=== PATIENT | female | born 1980 | race Caucasian/White ===

== ENCOUNTER 2019-07-27 12:16 | Inpatient (IN) | payer OTHER ==
[~2019-07-27] VITALS: Ht 170.2 cm; Wt 91.6 kg
[2019-07-27] MEDS ORDERED: SODIUM CHLORIDE 0.9% 1000ML 1,000 ML IV STA (12:31)
[2019-07-27 12:53] LABS: BASOPHILS % 0.1 % (0.0-1.0); EOSINOPHILS # (AUTO) 0.1 (0.0-0.4); EOSINOPHILS % 0.6 % (0.0-6.0); HEMOGLOBIN 13.5 g/dL (12.0-16.0); LYMPHOCYTES # (AUTO) 2.2 (1.0-3.2); LYMPHOCYTES % 10.3 % (18.0-39.1); MEAN CORPUSCULAR HEMOGLOBIN 30.5 pg (28-32); MEAN CORPUSCULAR HGB CONC 33.8 g/dL (31-35); MEAN CORPUSCULAR VOLUME 90.5 fL (81-99); MONOCYTES % 4.8 % (4.4-11.3); NEUTROPHILS % 83.5 % (38.7-80.0); PLATELET COUNT 250 x10e3/uL (140-360); RED BLOOD COUNT 4.42 x10e6/uL (3.6-5.1); RED CELL DISTRIBUTION WIDTH 13.6 % (11.7-14.4)
[2019-07-27] MEDS ORDERED: ONDANSETRON HCL INJ 2MG/ML 2ML 2 MG/ML VIAL IV ONE (13:00)
[2019-07-27] MEDS ORDERED: MORPHINE SULFATE INJ 4 MG/ML INJ 1ML IV ONE (13:00)
[2019-07-27] MEDS ORDERED: PIPER-TAZ 3.375 GM 50 ML IV ONE (13:00)
[2019-07-27 13:15] LABS: ALANINE AMINOTRANSFERASE 9 IU/L (0-55); ALBUMIN 3.4 g/dL (3.5-5.0); ALBUMIN/GLOBULIN RATIO 0.9 (0.8-2.0); ALKALINE PHOSPHATASE 65 IU/L (40-150); ANION GAP 14.4 mmol/L (8-16); BLOOD UREA NITROGEN 9 mg/dL (7-26); BUN/CREATININE RATIO 11 (6-25); CALCIUM 9.8 mg/dL (8.4-10.2); CARBON DIOXIDE 25 mmol/L (22-29); CHLORIDE 103 mmol/L (98-107); CREATININE, SERUM 0.81 mg/dL (0.57-1.11); EST GLOMERULAR FILTRATION RATE > 60 ML/MIN (60-); GLUCOSE 93 mg/dL (74-118); POTASSIUM 3.4 mmol/L (3.5-5.1); SODIUM 139 mmol/L (136-145)
[2019-07-27 13:20] LABS: BILIRUBIN,URINE SMALL (NEGATIVE); CLARITY,URINE SL CLOUDY (CLEAR); COLOR,URINE YELLOW (YELLOW); KETONES,URINE TRACE (NEGATIVE); LEUKOCYTE ESTERASE ,URINE NEGATIVE (NEGATIVE); NITRITE,URINE NEGATIVE (NEGATIVE); PROTEIN,URINE DIPSTICK 2+ (NEGATIVE); URINE UROBILINOGEN 1 mg/dL (0.2 - 1)
--- NOTE | 2019-07-27 13:35 | Diagnostic Imaging Report ---
EXAMINATION: CHEST SINGLE (PORTABLE) INDICATION: Shortness of breath, cough COMPARISON: None FINDINGS: LINES/TUBES:None LUNGS:The lungs are well-inflated. No focal consolidation or pulmonary edema. PLEURA:No pleural effusion or pneumothorax. MEDIASTINUM:The cardiomediastinal silhouette appears normal in size and shape. BONES/SOFT TISSUES:No acute osseous injury. ABDOMEN:No free air under the diaphragm. IMPRESSION: No focal pneumonia or pulmonary edema. Signed by: Pat Mckeon MD on 07/27/2019 1:32 PM
[2019-07-27 13:58] LABS: BACTERIA,URINE MODERATE /HPF; EPITHELIAL CELLS,URINE MANY /LPF; WBC,URINE (MAN) 0-5 /HPF (0-5)
[2019-07-27] MEDS ORDERED: VANCOMYCIN 1GM/NS 250 ML 250 ML IV ONE (14:00)
[2019-07-27] MEDS ORDERED: ONDANSETRON HCL INJ 2MG/ML 2ML 2 MG/ML VIAL IV PRN (15:00)
[2019-07-27] MEDS: SODIUM CHLORIDE 0.9% 1000ML 1,000 ML IV SCH ×2 (16:34→21:50)
[2019-07-27] MEDS: HYDROCODONE/APAP 7.5MG-325MG 1 EA TAB PO PRN (19:00)
[2019-07-27] MEDS: PIPER-TAZ 3.375 GM 50 ML IV SCH (19:58)
[2019-07-27 20:00] VITALS: BP 118/57
[2019-07-27 20:36] VITALS: BP 118/57
--- NOTE | 2019-07-27 21:00 | NUR ---
RECEIVED PATIENT FROM ER AOX4 NO SIGNS OF DISTRESS NOTED. REDNESS NOTED IN LEFT UPPER THIGH AND PATIENT VOICES NO PAIN AT THIS TIME. FLUIDS ARE RUNNING AT ORDERED RATE, BOTH SIDE RAILS ARE UP, CALL LIGHT WITHIN REACH, WILL CONTINUE TO MONITOR.
[2019-07-27 22:08] VITALS: BP 118/57
[2019-07-27 22:15] VITALS: BP 118/57
[2019-07-28] VITALS (8 sets, daily range): BP systolic 93–106; BP diastolic 49–64
[2019-07-28] MEDS: VANCOMYCIN 1GM/NS 250 ML 250 ML IV SCH ×2 (01:08→14:17)
[2019-07-28] MEDS: HYDROCODONE/APAP 7.5MG-325MG 1 EA TAB PO PRN ×5 (01:20→23:59)
[2019-07-28] MEDS: PIPER-TAZ 3.375 GM 50 ML IV SCH ×4 (02:46→20:15)
[2019-07-28 06:05] LABS: BASOPHILS # (AUTO) 0.1 (0.0-0.1); BASOPHILS % 0.4 % (0.0-1.0); EOSINOPHILS # (AUTO) 0.2 (0.0-0.4); EOSINOPHILS % 1.9 % (0.0-6.0); HEMATOCRIT 37.9 % (34.2-44.1); HEMOGLOBIN 12.3 g/dL (12.0-16.0); LYMPHOCYTES # (AUTO) 2.6 (1.0-3.2); LYMPHOCYTES % 21.9 % (18.0-39.1); MEAN CORPUSCULAR HEMOGLOBIN 30.4 pg (28-32); MEAN CORPUSCULAR HGB CONC 32.5 g/dL (31-35); MEAN CORPUSCULAR VOLUME 93.8 fL (81-99); MONOCYTES # (AUTO) 0.6 (0.2-0.8); MONOCYTES % 4.9 % (4.4-11.3); NEUTROPHILS # (AUTO) 8.3 (2.1-6.9); NEUTROPHILS % 70.5 % (38.7-80.0); PLATELET COUNT 198 x10e3/uL (140-360); RED BLOOD COUNT 4.04 x10e6/uL (3.6-5.1); RED CELL DISTRIBUTION WIDTH 13.8 % (11.7-14.4)
[2019-07-28 06:41] LABS: ALANINE AMINOTRANSFERASE 9 IU/L (0-55); ALBUMIN 2.7 g/dL (3.5-5.0); ALBUMIN/GLOBULIN RATIO 0.9 (0.8-2.0); ALKALINE PHOSPHATASE 55 IU/L (40-150); ANION GAP 12.1 mmol/L (8-16); BLOOD UREA NITROGEN 10 mg/dL (7-26); BUN/CREATININE RATIO 13 (6-25); CALCIUM 8.5 mg/dL (8.4-10.2); CARBON DIOXIDE 22 mmol/L (22-29); CHLORIDE 108 mmol/L (98-107); CREATININE, SERUM 0.77 mg/dL (0.57-1.11); EST GLOMERULAR FILTRATION RATE > 60 ML/MIN (60-); GLUCOSE 85 mg/dL (74-118); POTASSIUM 4.1 mmol/L (3.5-5.1); SODIUM 138 mmol/L (136-145)
[2019-07-28] MEDS ORDERED: MELATONIN 5 MG TABLET PO PRN (08:15)
[2019-07-28] MEDS ORDERED: ACETAMINOPHEN 325 MG TAB PO PRN (08:15)
[2019-07-28] MEDS ORDERED: HYDRALAZINE HCL 20 MG/ML VIAL IV PRN (08:15)
[2019-07-28] MEDS ORDERED: NICOTINE 14 MG/EA PATCH TOP PRN (08:30)
[2019-07-28] MEDS ORDERED: ALBUTEROL/IPRATROPIUM 3 ML NEB NEB PRN (08:30)
[2019-07-28] MEDS: SODIUM CHLORIDE 0.9% 1000ML 1,000 ML IV SCH (10:48)
[2019-07-28] MEDS: FAMOTIDINE 20 MG TAB PO SCH (18:04)
--- NOTE | 2019-07-28 21:07 | NUR ---
PATIENT'S IV FROM LEFT AC HAD DISLODGED AND IS NOW REPLACED IN LEFT HAND WITH 22 GAUGE, IT IS PATENT AND FLOWING WITH MEDICATION AT ORDERED RATE.
[2019-07-29] VITALS (7 sets, daily range): BP systolic 97–114; BP diastolic 49–64
[2019-07-29] MEDS: SODIUM CHLORIDE 0.9% 1000ML 1,000 ML IV SCH ×3 (00:32→19:21)
[2019-07-29] MEDS: VANCOMYCIN 1GM/NS 250 ML 250 ML IV SCH ×2 (01:24→14:30)
[2019-07-29] MEDS: PIPER-TAZ 3.375 GM 50 ML IV SCH ×4 (03:00→20:10)
--- NOTE | 2019-07-29 03:30 | NUR ---
ATTEMPTED TO GET 03:00 LAB DRAW TO PATIENT BUT WAS UNSUCCESSFUL AFTER 3 ATTEMPTS. WILL HAVE PHLEBOTOMY DO IT AT 05:00.
[2019-07-29 07:51] LABS: BASOPHILS # (AUTO) 0.1 (0.0-0.1); BASOPHILS % 0.7 % (0.0-1.0); EOSINOPHILS # (AUTO) 0.2 (0.0-0.4); HEMATOCRIT 36.3 % (34.2-44.1); LYMPHOCYTES # (AUTO) 2.1 (1.0-3.2); LYMPHOCYTES % 27.4 % (18.0-39.1); MEAN CORPUSCULAR HEMOGLOBIN 30.8 pg (28-32); MEAN CORPUSCULAR HGB CONC 33.1 g/dL (31-35); MEAN CORPUSCULAR VOLUME 93.1 fL (81-99); MONOCYTES # (AUTO) 0.5 (0.2-0.8); MONOCYTES % 6.4 % (4.4-11.3); NEUTROPHILS # (AUTO) 4.7 (2.1-6.9); NEUTROPHILS % 62.1 % (38.7-80.0); PLATELET COUNT 240 x10e3/uL (140-360); RED CELL DISTRIBUTION WIDTH 13.5 % (11.7-14.4)
[2019-07-29] MEDS: FAMOTIDINE 20 MG TAB PO SCH ×2 (07:55→16:55)
[2019-07-29 08:05] LABS: BLOOD UREA NITROGEN 7 mg/dL (7-26); BUN/CREATININE RATIO 9 (6-25); CALCIUM 8.7 mg/dL (8.4-10.2); CARBON DIOXIDE 26 mmol/L (22-29); CHLORIDE 106 mmol/L (98-107); CREATININE, SERUM 0.81 mg/dL (0.57-1.11); EST GLOMERULAR FILTRATION RATE > 60 ML/MIN (60-); GLUCOSE 88 mg/dL (74-118); SODIUM 139 mmol/L (136-145)
[2019-07-29 08:29] LABS: FREE T4 (FREE THYROXINE) 1.04 ng/dL (0.8-1.8); THYROID STIMULATING HORMONE 3.367 uIU/mL (0.350-4.940)
[2019-07-29] MEDS: HYDROCODONE/APAP 7.5MG-325MG 1 EA TAB PO PRN ×3 (10:38→22:22)
--- NOTE | 2019-07-29 19:10 | NUR ---
Patient visited in room during nursing rounds. Patient alert and oriented x3. No distress noted. Cellulitis site (with marked induration) on left upper thigh noted and pt experiencing intermittent burning pain. On IVF (NS at 100ml/hr) and IV antibiotics as scheduled. Pt ambulatory in room prn. Call ruiz within reach. Will monitor closely.
[2019-07-30] VITALS (7 sets, daily range): BP systolic 106–117; BP diastolic 54–75
[2019-07-30] MEDS: PIPER-TAZ 3.375 GM 50 ML IV SCH ×4 (02:10→19:45)
[2019-07-30] MEDS: SODIUM CHLORIDE 0.9% 1000ML 1,000 ML IV SCH (02:10)
[2019-07-30 03:36] LABS: BASOPHILS % 0.5 % (0.0-1.0); EOSINOPHILS # (AUTO) 0.2 (0.0-0.4); EOSINOPHILS % 2.8 % (0.0-6.0); HEMATOCRIT 35.5 % (34.2-44.1); HEMOGLOBIN 11.8 g/dL (12.0-16.0); LYMPHOCYTES # (AUTO) 2.2 (1.0-3.2); LYMPHOCYTES % 29.2 % (18.0-39.1); MEAN CORPUSCULAR HEMOGLOBIN 30.1 pg (28-32); MEAN CORPUSCULAR HGB CONC 33.2 g/dL (31-35); MEAN CORPUSCULAR VOLUME 90.6 fL (81-99); MONOCYTES # (AUTO) 0.5 (0.2-0.8); NEUTROPHILS # (AUTO) 4.6 (2.1-6.9); NEUTROPHILS % 60.2 % (38.7-80.0); PLATELET COUNT 251 x10e3/uL (140-360); RED BLOOD COUNT 3.92 x10e6/uL (3.6-5.1); RED CELL DISTRIBUTION WIDTH 13.2 % (11.7-14.4)
[2019-07-30 03:47] LABS: ANION GAP 12.9 mmol/L (8-16); BLOOD UREA NITROGEN 9 mg/dL (7-26); BUN/CREATININE RATIO 12 (6-25); CALCIUM 8.9 mg/dL (8.4-10.2); CARBON DIOXIDE 25 mmol/L (22-29); CHLORIDE 106 mmol/L (98-107); CREATININE, SERUM 0.78 mg/dL (0.57-1.11); EST GLOMERULAR FILTRATION RATE > 60 ML/MIN (60-); GLUCOSE 114 mg/dL (74-118); POTASSIUM 3.9 mmol/L (3.5-5.1); SODIUM 140 mmol/L (136-145)
[2019-07-30] MEDS: VANCOMYCIN 1GM/NS 250 ML 250 ML IV SCH ×2 (04:40→15:30)
[2019-07-30] MEDS: HYDROCODONE/APAP 7.5MG-325MG 1 EA TAB PO PRN ×4 (04:45→21:30)
[2019-07-30] MEDS: FAMOTIDINE 20 MG TAB PO SCH ×2 (06:35→16:21)
--- NOTE | 2019-07-30 12:08 | Diagnostic Imaging Report ---
ULTRASOUND: LEFT THIGH TECHNIQUE: Ultrasound evaluation of the left thigh. Color doppler was utilized to supplement the evaluation. HISTORY: Cellulitis, rule out abscess COMPARISON: None DISCUSSION: Ultrasound evaluation in the region of the left thigh cellulitis. IMPRESSION: 1. Nonspecific soft tissue edema. 2. No drainable fluid collection/abscess. Signed by: Dr. Russell Urbina D.O., M.M.M. on 07/30/2019 12:05 PM
--- NOTE | 2019-07-30 18:48 | Consultation ---
DATE OF CONSULTATION: 07/30/2019 HISTORY OF PRESENT ILLNESS: The patient is a 38-year-old female, who was admitted to the hospital with complaints of pain and swelling in her left thigh, apparently she had been on outpatient therapy without improvement. Since admission with IV antibiotic she has improved. She has been afebrile. She has ultrasound of the left thigh done today, which revealed only soft tissue swelling with no abscess. PAST MEDICAL HISTORY: Otherwise, unremarkable. She denies chronic medical problems. ALLERGIES: SHE HAS NO KNOWN ALLERGIES. PAST SURGICAL HISTORY: Only previous surgery is a tubal ligation. MEDICATIONS: There were no chronic medications. FAMILY HISTORY: Noncontributory. SOCIAL HISTORY: The patient does not smoke cigarettes or drink alcohol. REVIEW OF SYSTEMS: As stated above, otherwise was negative. PHYSICAL EXAMINATION: GENERAL: The patient is awake and alert, in no distress. VITAL SIGNS: Normal. HEENT: There was no scleral icterus. NECK: No masses. LUNGS: Equal breath sounds are clear bilaterally. CARDIAC: Regular rate and rhythm. ABDOMEN: Soft with no tenderness. No mass. EXTREMITIES: Left thigh, there is erythema. There is some mild induration in the groin area. There is no drainage. No fluctuance. No necrotic tissue. NEUROLOGIC: Grossly intact. ASSESSMENT: A 38-year-old female with cellulitis of the left side. No evidence of abscess on exam or ultrasound. RECOMMEND: Continue the patient on IV antibiotics. I will continue to follow the patient with you. Thank you for asking me to see Ms. Metcalf. MD MELINA Pollard/JEANIE /[id number]
--- NOTE | 2019-07-30 19:10 | NUR ---
Patient visited in room during nursing rounds. Patient alert and oriented x3. No distress noted. Cellulitis site (with marked induration) on left upper thigh noted and pt experiencing intermittent burning pain. Redness on left thigh has decreased in size based on marked induration. On scheduled IV antibiotics. Pt ambulatory in room prn. Call ruiz within reach. Will monitor closely.
[2019-07-31] VITALS (8 sets, daily range): BP systolic 99–131; BP diastolic 53–66
[2019-07-31] MEDS: PIPER-TAZ 3.375 GM 50 ML IV SCH ×4 (02:00→21:23)
[2019-07-31 03:33] LABS: BASOPHILS % 0.5 % (0.0-1.0); EOSINOPHILS # (AUTO) 0.2 (0.0-0.4); EOSINOPHILS % 2.8 % (0.0-6.0); HEMATOCRIT 35.4 % (34.2-44.1); HEMOGLOBIN 11.9 g/dL (12.0-16.0); LYMPHOCYTES # (AUTO) 2.1 (1.0-3.2); LYMPHOCYTES % 24.6 % (18.0-39.1); MEAN CORPUSCULAR HEMOGLOBIN 30.4 pg (28-32); MEAN CORPUSCULAR HGB CONC 33.6 g/dL (31-35); MEAN CORPUSCULAR VOLUME 90.3 fL (81-99); MONOCYTES # (AUTO) 0.6 (0.2-0.8); MONOCYTES % 6.6 % (4.4-11.3); NEUTROPHILS # (AUTO) 5.5 (2.1-6.9); NEUTROPHILS % 64.8 % (38.7-80.0); PLATELET COUNT 255 x10e3/uL (140-360); RED BLOOD COUNT 3.92 x10e6/uL (3.6-5.1); RED CELL DISTRIBUTION WIDTH 13.2 % (11.7-14.4)
[2019-07-31] MEDS: VANCOMYCIN 1GM/NS 250 ML 250 ML IV SCH ×2 (03:41→16:29)
[2019-07-31 03:52] LABS: ANION GAP 13.9 mmol/L (8-16); BLOOD UREA NITROGEN 5 mg/dL (7-26); BUN/CREATININE RATIO 7 (6-25); CALCIUM 9.2 mg/dL (8.4-10.2); CARBON DIOXIDE 26 mmol/L (22-29); CHLORIDE 103 mmol/L (98-107); CREATININE, SERUM 0.76 mg/dL (0.57-1.11); EST GLOMERULAR FILTRATION RATE > 60 ML/MIN (60-); GLUCOSE 95 mg/dL (74-118); POTASSIUM 3.9 mmol/L (3.5-5.1); SODIUM 139 mmol/L (136-145)
[2019-07-31] MEDS: HYDROCODONE/APAP 7.5MG-325MG 1 EA TAB PO PRN ×3 (06:38→17:54)
[2019-07-31] MEDS: FAMOTIDINE 20 MG TAB PO SCH ×2 (06:38→16:29)
--- NOTE | 2019-07-31 07:16 | NUR ---
Received patient lying in bed with eyes open. Respiration even and unlabored without SOB. Call light in reach.
--- NOTE | 2019-07-31 19:24 | NUR ---
Report given to shift production associate. Respiration even and unlabored without SOB. Call light in reach.
--- NOTE | 2019-07-31 19:33 | NUR ---
PT IS RESTING IN BED. RESPIRATION IS EVEN AND UNLABORED, NO DISTRESS NOTED. BED IN THE LOWEST POSITION, LOCKED, AND CALL LIGHT WITHIN REACH. WILL CONTINUE TO MONITOR.
[2019-07-31] MEDS: ACETAMINOPHEN/CODEINE 300MG - 30MG TAB PO PRN (21:23)
[2019-08-01] VITALS (8 sets, daily range): BP systolic 107–134; BP diastolic 56–87
[2019-08-01] MEDS: PIPER-TAZ 3.375 GM 50 ML IV SCH ×4 (02:04→20:20)
[2019-08-01 03:31] LABS: BASOPHILS # (AUTO) 0.1 (0.0-0.1); BASOPHILS % 0.7 % (0.0-1.0); EOSINOPHILS # (AUTO) 0.3 (0.0-0.4); EOSINOPHILS % 2.5 % (0.0-6.0); HEMATOCRIT 37.8 % (34.2-44.1); HEMOGLOBIN 12.8 g/dL (12.0-16.0); LYMPHOCYTES # (AUTO) 2.3 (1.0-3.2); LYMPHOCYTES % 23.2 % (18.0-39.1); MEAN CORPUSCULAR HEMOGLOBIN 30.5 pg (28-32); MEAN CORPUSCULAR HGB CONC 33.9 g/dL (31-35); MEAN CORPUSCULAR VOLUME 90.2 fL (81-99); MONOCYTES # (AUTO) 0.6 (0.2-0.8); MONOCYTES % 6.5 % (4.4-11.3); NEUTROPHILS # (AUTO) 6.5 (2.1-6.9); NEUTROPHILS % 66.4 % (38.7-80.0); PLATELET COUNT 270 x10e3/uL (140-360); RED BLOOD COUNT 4.19 x10e6/uL (3.6-5.1); RED CELL DISTRIBUTION WIDTH 13.2 % (11.7-14.4)
[2019-08-01 03:48] LABS: ANION GAP 13.1 mmol/L (8-16); BLOOD UREA NITROGEN 7 mg/dL (7-26); BUN/CREATININE RATIO 9 (6-25); CALCIUM 9.1 mg/dL (8.4-10.2); CARBON DIOXIDE 25 mmol/L (22-29); CHLORIDE 104 mmol/L (98-107); CREATININE, SERUM 0.78 mg/dL (0.57-1.11); EST GLOMERULAR FILTRATION RATE > 60 ML/MIN (60-); GLUCOSE 98 mg/dL (74-118); POTASSIUM 4.1 mmol/L (3.5-5.1); SODIUM 138 mmol/L (136-145)
[2019-08-01] MEDS: VANCOMYCIN 1GM/NS 250 ML 250 ML IV SCH ×2 (04:09→17:02)
[2019-08-01] MEDS: HYDROCODONE/APAP 7.5MG-325MG 1 EA TAB PO PRN ×2 (06:44→20:58)
[2019-08-01] MEDS: FAMOTIDINE 20 MG TAB PO SCH ×2 (10:18→17:25)
--- NOTE | 2019-08-01 14:55 | NUR ---
Nutrition Screen Note RD Recommendation for Physician: -Continue regular diet per MD. Plan of Care: RD following, monitoring for tolerance and adequacy Nutrition reason for involvement: LOS Primary Diagnose(s): Cellulitis of left thigh PMH: no significant PMH Ht: 67 in Wt: 202 lb BMI: 31.6 kg/m2 IBW: [address] Assessment: (08/01) 38 YOF admitted for cellulitis of the left thigh with no pertinent PMH. Pt reported that she was not too hungry but that she has been eating. Pt denied an unintentional weight loss recently. Pt denied N/V/C/D/chewing or swallowing issues as well as any food allergies. Pt had no other questions or concerns. Chart reviewed. Labs and meds reviewed. Will continue to monitor. Current Diet: regular Malnutrition Evaluation (08/01) The patient does not meet criteria for a specified degree of malnutrition at this time. Will re-evaluate at follow-up as appropriate. Diet Education Needs Assessment: Diet education not indicated. Nutrition Care Level: low Signed: Meagan Parada RD, LD
[2019-08-02] VITALS (10 sets, daily range): BP systolic 90–111; BP diastolic 54–73
[2019-08-02] MEDS: PIPER-TAZ 3.375 GM 50 ML IV SCH ×4 (02:05→20:45)
[2019-08-02] MEDS: VANCOMYCIN 1GM/NS 250 ML 250 ML IV SCH ×2 (03:04→16:01)
[2019-08-02 03:22] LABS: BASOPHILS # (AUTO) 0.1 (0.0-0.1); BASOPHILS % 0.7 % (0.0-1.0); EOSINOPHILS # (AUTO) 0.3 (0.0-0.4); EOSINOPHILS % 2.9 % (0.0-6.0); HEMATOCRIT 39.1 % (34.2-44.1); HEMOGLOBIN 13.2 g/dL (12.0-16.0); LYMPHOCYTES # (AUTO) 2.3 (1.0-3.2); LYMPHOCYTES % 19.3 % (18.0-39.1); MEAN CORPUSCULAR HEMOGLOBIN 30.4 pg (28-32); MEAN CORPUSCULAR HGB CONC 33.8 g/dL (31-35); MEAN CORPUSCULAR VOLUME 90.1 fL (81-99); MONOCYTES # (AUTO) 0.8 (0.2-0.8); MONOCYTES % 6.8 % (4.4-11.3); NEUTROPHILS # (AUTO) 8.3 (2.1-6.9); NEUTROPHILS % 69.7 % (38.7-80.0); PLATELET COUNT 278 x10e3/uL (140-360); RED BLOOD COUNT 4.34 x10e6/uL (3.6-5.1); RED CELL DISTRIBUTION WIDTH 13.2 % (11.7-14.4)
[2019-08-02] MEDS ORDERED: SODIUM CHLORIDE 0.9% 250ML 250 ML ONE (09:12)
[2019-08-02] MEDS: HYDROCODONE/APAP 7.5MG-325MG 1 EA TAB PO PRN ×2 (09:19→19:45)
[2019-08-02] MEDS: FAMOTIDINE 20 MG TAB PO SCH ×2 (09:19→16:29)
--- NOTE | 2019-08-02 20:45 | NUR ---
PATIENT IS AOX4 NO SIGNS OF DISTRESS NOTED. DAUGHTER AT BEDSIDE WITH PATIENT, REDNESS NOTED IN LEFT UPPER THIGH WITH MILD BLISTERING AND PATIENT VOICES NO PAIN AT THIS TIME. BED IS LOCKED AND IN LOWEST POSITION, BOTH SIDE RAILS ARE UP, CALL LIGHT WITHIN REACH, WILL CONTINUE TO MONITOR.
[2019-08-03] VITALS (9 sets, daily range): BP systolic 93–124; BP diastolic 54–69
[2019-08-03] MEDS: PIPER-TAZ 3.375 GM 50 ML IV SCH ×4 (01:50→20:50)
[2019-08-03 03:40] LABS: BASOPHILS # (AUTO) 0.1 (0.0-0.1); BASOPHILS % 0.9 % (0.0-1.0); EOSINOPHILS # (AUTO) 0.3 (0.0-0.4); EOSINOPHILS % 2.9 % (0.0-6.0); HEMATOCRIT 38.9 % (34.2-44.1); LYMPHOCYTES # (AUTO) 2.3 (1.0-3.2); LYMPHOCYTES % 22.1 % (18.0-39.1); MEAN CORPUSCULAR HEMOGLOBIN 29.8 pg (28-32); MEAN CORPUSCULAR HGB CONC 33.4 g/dL (31-35); MEAN CORPUSCULAR VOLUME 89.2 fL (81-99); MONOCYTES # (AUTO) 0.7 (0.2-0.8); NEUTROPHILS % 66.1 % (38.7-80.0); PLATELET COUNT 298 x10e3/uL (140-360); RED BLOOD COUNT 4.36 x10e6/uL (3.6-5.1); RED CELL DISTRIBUTION WIDTH 13.2 % (11.7-14.4)
[2019-08-03 04:00] LABS: ANION GAP 13.9 mmol/L (8-16); BLOOD UREA NITROGEN 11 mg/dL (7-26); BUN/CREATININE RATIO 13 (6-25); CALCIUM 9.6 mg/dL (8.4-10.2); CARBON DIOXIDE 23 mmol/L (22-29); CHLORIDE 105 mmol/L (98-107); CREATININE, SERUM 0.83 mg/dL (0.57-1.11); EST GLOMERULAR FILTRATION RATE > 60 ML/MIN (60-); GLUCOSE 101 mg/dL (74-118); POTASSIUM 3.9 mmol/L (3.5-5.1); SODIUM 138 mmol/L (136-145)
--- NOTE | 2019-08-03 04:25 | NUR ---
VANCOMYCIN TROUGH RESULTS CAME BACK AT 8.9 WILL CONTINUE TO GIVE ORDERED MEDICATION.
[2019-08-03] MEDS: VANCOMYCIN 1GM/NS 250 ML 250 ML IV SCH ×2 (04:30→17:00)
[2019-08-03] MEDS: FAMOTIDINE 20 MG TAB PO SCH ×2 (07:30→17:00)
[2019-08-03] MEDS ORDERED: ACETAMINOPHEN 1000 MG/100 ML 100 ML IV ONE (11:56)
[2019-08-03] MEDS ORDERED: MORPHINE SULFATE INJ 4 MG/ML INJ 1ML IV PRN (12:00)
[2019-08-03] MEDS ORDERED: BACITRACIN 50,000 UNIT VIAL ONE (12:00)
[2019-08-03] MEDS ORDERED: MORPHINE SULFATE INJ 10 MG/ML ONE (12:07)
--- NOTE | 2019-08-03 12:28 | NUR ---
Pt back on unit at this time, post procedure. A&O x4, resp WNL. C/o pain to surgical site 04/10. Dressing to L thigh, CDI. New orders received in computer. Call light within reach, bed in lowest position.
--- NOTE | 2019-08-03 13:10 | Operative Report ---
DATE OF PROCEDURE: 08/03/2019 SURGEON: Yung Lopez MD PREOPERATIVE DIAGNOSIS: Abscess, left medial thigh. POSTOPERATIVE DIAGNOSIS: Abscess, left medial thigh. PROCEDURE: Incision and drainage of abscess, left medial thigh. HAND DRILLER: None. ANESTHESIA: General. INDICATIONS AND FINDINGS: The patient is a 38-year-old female with complaints of pain and swelling in left thigh. The surrounding cellulitis gradually improved, which she continued to have area of induration with some fluctuance in the medial thigh. At Surgery, there was an abscess containing approximately 4 mL of purulent fluid, which was drained. TECHNIQUE: After adequate general anesthesia, the patient is in supine position with the left leg abducted, the left medial thigh was prepped and draped in sterile fashion with Betadine solution. Incision was made over the area of swelling and abscess cavity was entered, purulent fluid was drained, sample taken for culture and sensitivity. All loculations were broken up. The abscess cavity was irrigated with saline. Hemostasis was seen to be adequate. The wound was then packed open with half-inch iodoform gauze and sterile dressing applied. The patient tolerated the procedure well. Estimated blood loss was 5 mL. There were no complications. All counts were correct. The patient was taken to the recovery room in satisfactory condition. Yung Lopez MD DWG/MODL /[id number]
[2019-08-03] MEDS ORDERED: MIDAZOLAM HCL 2 MG/2 ML VIAL ONE (18:03)
[2019-08-03] MEDS ORDERED: FENTANYL CITRATE/PF 100MCG/2 ML INJ ONE (18:03)
[2019-08-03] MEDS ORDERED: PROPOFOL IV EMULSION 10 MG/ML 20 ML VIAL ONE (18:07)
[2019-08-03] MEDS ORDERED: SEVOFLURANE INHAL SOLN 250 ML PEN BTL ONE (18:07)
[2019-08-03] MEDS ORDERED: ONDANSETRON HCL INJ 2MG/ML 2ML 2 MG/ML VIAL ONE (18:07)
[2019-08-03] MEDS ORDERED: LIDOCAINE HCL 2% LOCAL INJ 5 ML SDV VIAL INJ ONE (18:07)
--- NOTE | 2019-08-03 20:50 | NUR ---
PATIENT HAS NEW IV IN RIGHT HAND 20 GAUGE, IT IS PATENT AND FLOWING.
[2019-08-04] VITALS: BP 107/58
[2019-08-04] MEDS: PIPER-TAZ 3.375 GM 50 ML IV SCH ×2 (02:09→07:33)
--- NOTE | 2019-08-04 03:15 | NUR ---
ATTEMPTED TO DRAW 0300 LABS AND WAS UNSUCCESSFUL AFTER TWO TRIES. CALLED LAB TO TRY AGAIN AT 0500.
[2019-08-04] MEDS: VANCOMYCIN 1GM/NS 250 ML 250 ML IV SCH (03:26)
[2019-08-04 04:00] VITALS: BP 114/63
[2019-08-04] MEDS ORDERED: TYLENOL # 31 EA PO (06:27)
[2019-08-04] MEDS ORDERED: CIPRO500 MG PO (06:27)
[2019-08-04] MEDS ORDERED: BACTRIM DS TAB1 EACH PO (06:27)
[2019-08-04 06:41] LABS: BASOPHILS # (AUTO) 0.1 (0.0-0.1); BASOPHILS % 0.5 % (0.0-1.0); EOSINOPHILS # (AUTO) 0.2 (0.0-0.4); EOSINOPHILS % 2.2 % (0.0-6.0); HEMATOCRIT 39.2 % (34.2-44.1); HEMOGLOBIN 12.9 g/dL (12.0-16.0); LYMPHOCYTES # (AUTO) 1.7 (1.0-3.2); LYMPHOCYTES % 16.4 % (18.0-39.1); MEAN CORPUSCULAR HEMOGLOBIN 29.9 pg (28-32); MEAN CORPUSCULAR HGB CONC 32.9 g/dL (31-35); MEAN CORPUSCULAR VOLUME 90.7 fL (81-99); MONOCYTES # (AUTO) 0.7 (0.2-0.8); MONOCYTES % 6.4 % (4.4-11.3); NEUTROPHILS # (AUTO) 7.5 (2.1-6.9); NEUTROPHILS % 73.9 % (38.7-80.0); PLATELET COUNT 318 x10e3/uL (140-360); RED BLOOD COUNT 4.32 x10e6/uL (3.6-5.1); RED CELL DISTRIBUTION WIDTH 13.3 % (11.7-14.4)
[2019-08-04 06:49] LABS: ANION GAP 13.1 mmol/L (8-16); BLOOD UREA NITROGEN 12 mg/dL (7-26); BUN/CREATININE RATIO 15 (6-25); CALCIUM 9.4 mg/dL (8.4-10.2); CARBON DIOXIDE 24 mmol/L (22-29); CHLORIDE 103 mmol/L (98-107); CREATININE, SERUM 0.79 mg/dL (0.57-1.11); EST GLOMERULAR FILTRATION RATE > 60 ML/MIN (60-); GLUCOSE 101 mg/dL (74-118); POTASSIUM 4.1 mmol/L (3.5-5.1); SODIUM 136 mmol/L (136-145)
--- NOTE | 2019-08-04 07:00 | NUR ---
received am report from nurse and morning rounds done. pt is alert sitting up in bed, no s/s of distress. call light within reach and side rails are up. instructed pt to call nurse for help.
[2019-08-04 07:11] VITALS: BP 106/53
[2019-08-04] MEDS: FAMOTIDINE 20 MG TAB PO SCH (07:33)
[2019-08-04] MEDS: ACETAMINOPHEN/CODEINE 300MG - 30MG TAB PO PRN (07:33)
[2019-08-04 07:50] VITALS: BP 106/53
== END 2019-08-04 08:35 | disposition home or self-care (01) | DRG 854 ==
LOC: ER 12:16 → ERHOLD 15:04 → MED/SURG3 20:43
PROVIDERS: ADMIT Internal Medicine; ATTEND Internal Medicine
PROC: 0J9M0ZZ Drainage of Left Upper Leg Subcutaneous Tissue and Fascia, Open Approach (ICD-10-PCS; principal; 2019-07-27)
DX: A41.9 Sepsis, unspecified organism (principal); L03.116 Cellulitis of left lower limb; Z68.31 Body mass index [BMI] 31.0-31.9, adult; Z72.0 Tobacco use; F17.200 Nicotine dependence, unspecified, uncomplicated; E66.9 Obesity, unspecified
CPT/HCPCS: 36415; 71045; 76882; 80048; 80053; 80202; 81001; 83036; 83605; 84439; 84443; 84702; 85025; 87040; 87071; 87075; 87086; 87186; 87205; 93005; 99284; J2001; J2250; J2270; J2405; J2543; J3010; J3370; J7030; J7050